=== PATIENT | male | born 1970 | race Caucasian/White ===

== ENCOUNTER 2020-09-05 13:39 | Observation (INO) | payer OTHER ==
[~2020-09-05] VITALS: Ht 182.9 cm; Wt 102.1 kg
[2020-09-05 14:38] LABS: HEMOGLOBIN 15.9 gm/dl (14.0-17.5); RED BLOOD COUNT 5.2 M/UL (4.20-5.50); WHITE BLOOD COUNT 8.9 K/UL (4.5-11.0)
[2020-09-05 15:01] LABS: BUN/CREATININE RATIO 13 (0-10)
[2020-09-05] MEDS ORDERED: FLOMAX 0.4 MG0.4 MG PO (17:48)
[2020-09-05] MEDS ORDERED: PERCOCET 5-3251 EACH PO (17:49)
[2020-09-05] MEDS ORDERED: ASPIRIN EC81 MG PO (17:49)
[2020-09-05] MEDS ORDERED: INDOMETHACIN50 MG PO (17:50)
[2020-09-05] MEDS ORDERED: PRINIVIL20 MG PO (17:51)
[2020-09-05] MEDS ORDERED: ZYLOPRIM 300 M300 MG PO (17:52)
[2020-09-06 02:06] LABS: HEMOGLOBIN 15.2 gm/dl (14.0-17.5); RED BLOOD COUNT 4.92 M/UL (4.20-5.50)
[2020-09-06 02:15] LABS: WHITE BLOOD COUNT 11.9 K/UL (4.5-11.0)
[2020-09-06 02:24] LABS: BUN/CREATININE RATIO 16 (0-10)
== END 2020-09-06 17:56 | disposition home or self-care (01) ==
LOC: ER1 13:39 → CDU 16:40 → MED SURG 4 16:40 → CDU 19:40 → MED SURG 4 19:40 → CDU 09-06 17:56 → MED SURG 4 09-06 17:56 → CDU 09-06 17:56
PROVIDERS: Physician Assistant Medical; ADMIT Internal Medicine
DX: R55 Syncope and collapse (principal); I10 Essential (primary) hypertension; F10.10 Alcohol abuse, uncomplicated; N20.0 Calculus of kidney; Z79.82 Long term (current) use of aspirin; Z79.899 Other long term (current) drug therapy; Z79.891 Long term (current) use of opiate analgesic; Z20.822 Contact with and (suspected) exposure to COVID-19
CPT/HCPCS: ECHO; 36415; 70450; 70551; 80053; 80307; 81001; 82550; 82553; 83735; 84100; 84484; 85025; 85027; 87081; 93005; 93306; 99285; G0378; G0480; J2060; U0002